=== PATIENT | female | born 1975 | race Caucasian/White ===

== ENCOUNTER → 2017-10-07 | Outpatient (CLI) | payer BC ==
[~2017-10-07] MED LIST: EVE1000C3 PO; IRON1TAB60 PO; MULT-224 PO; OREG1500 PO; VITA1TAB19 PO
[2017-10-07 14:22] LABS: BASOPHILS # (AUTO) 0.02 x10^3/uL (0-0.1); BASOPHILS % (AUTO) 0 % (0-1); EOSINOPHILS # (AUTO) 0.06 x10^3/uL (0-0.4); EOSINOPHILS % (AUTO) 2 % (1-7); LYMPHOCYTES # (AUTO) 1.68 x10^3/uL (1-3.4); LYMPHOCYTES % (AUTO) 38 % (22-44); MD NO; MEAN CORPUSCULAR HEMOGLOBIN 29.9 pg (27.0-34.8); MEAN CORPUSCULAR HGB CONC 33.1 g/dL (32.4-35.8); MEAN CORPUSCULAR VOLUME 90.3 fL (80-100); MEAN PLATELET VOLUME 8.3 fL (7.4-10.4); MONOCYTES # (AUTO) 0.27 x10^3/uL (0.2-0.8); MONOCYTES % (AUTO) 6 % (2-9); NEUTROPHILS # (AUTO) 2.41 x10^3/uL (1.8-6.8); NEUTROPHILS % (AUTO) 54 % (42-75); PLATELET COUNT 282 x10^3/uL (130-400); RED BLOOD COUNT 4.61 x10^6/uL (3.82-5.3); RED CELL DISTRIBUTION WIDTH 13.8 % (9.6-15.2)
== END | disposition home or self-care (01) ==
LOC: STAR 13:20
PROVIDERS: ATTEND Obstetrics & Gynecology Female Pelvic Medicine and Reconstructive Surgery
DX: Z01.818 Encounter for other preprocedural examination (principal); N84.0 Polyp of corpus uteri; N80.1 Endometriosis of ovary
CPT/HCPCS: 36415; 84703; 85025

== ENCOUNTER 2017-10-13 11:03 | Day surgery (SDC) | payer BC ==
[~2017-10-13] VITALS: Ht 165.1 cm; Wt 58.0 kg
[~2017-10-13 11:03] MED LIST changes: +BUPIVACAINE/PF 0.25% ONE
[2017-10-13] MEDS ORDERED: METOCLOPRAMIDE 10MG TABLET PO ONE (11:30)
[2017-10-13] MEDS ORDERED: ACETAMINOPHEN 500 MG TABLET PO ONE (11:30)
[2017-10-13] MEDS ORDERED: FAMOTIDINE 20 MG TABLET PO ONE (11:30)
[2017-10-13] MEDS ORDERED: GABAPENTIN 300 MG CAPSULE PO ONE (11:30)
[2017-10-13] MEDS: LACTATED RINGERS 1,000 ML IV SCH ×2 (12:05→22:39)
[2017-10-13] MEDS ORDERED: MIDAZOLAM 1 MG/ML, 2ML ONE (12:09)
[2017-10-13] MEDS ORDERED: FENTANYL PF 100 MCG/2ML ONE ×2 (12:09→16:42)
[2017-10-13] MEDS ORDERED: PROPOFOL 50 ML ONE (12:19)
[2017-10-13 12:23] LABS: HCG UR SG 1.018 (1.003-1.030)
[2017-10-13] MEDS ORDERED: VASOPRESSIN 20 UNIT/ML, 1ML ONE (13:22)
[2017-10-13] MEDS ORDERED: NEOSTIGMINE 1 MG/ML, 10ML ONE (13:38)
[2017-10-13] MEDS ORDERED: ONDANSETRON 2MG/ML, 2ML ONE (13:38)
[2017-10-13] MEDS ORDERED: CEFAZOLIN 1,000 MG ONE (13:38)
[2017-10-13] MEDS ORDERED: ROCURONIUM 10 MG/ML,10ML ONE (13:38)
[2017-10-13] MEDS ORDERED: KETOROLAC 30 MG/1 ML ONE (13:38)
[2017-10-13] MEDS ORDERED: GLYCOPYRROLATE 0.2MG/1ML, 5ML ONE (13:38)
[2017-10-13] MEDS ORDERED: PROPOFOL 10 MG/ML, 20ML ONE (13:38)
[2017-10-13] MEDS ORDERED: DEXAMETHASONE 4 MG/ML, 1ML ONE (13:38)
[2017-10-13] MEDS ORDERED: INDIGO CARMINE 0.8%, 5ML ONE (14:01)
[2017-10-13] MEDS ORDERED: LACTATED RINGERS 1,000 ML IV SCH (16:20)
[2017-10-13] MEDS ORDERED: ONDANSETRON 2MG/ML, 2ML IVPush PRN (16:30)
[2017-10-13] MEDS ORDERED: PROMETHAZINE 12.5 MG SUPP PR ONE (16:30)
[2017-10-13] MEDS ORDERED: HYDROcodone/APAP 5/325 TABLET PO PRN (16:30)
[2017-10-13] MEDS ORDERED: IBUPROFEN 600 MG TABLET PO PRN (16:30)
[2017-10-13] MEDS ORDERED: OXYcodone 5 MG/5 ML ORAL.SOL UDC ONE (16:43)
[2017-10-13] MEDS ORDERED: PROMETHAZINE 25 MG/ML, 1ML IV PRN (17:00)
[2017-10-13] MEDS ORDERED: FENTANYL PF 100 MCG/2ML IV PRN (17:00)
[2017-10-13] MEDS ORDERED: OXYcodone 5 MG/5 ML ORAL.SOL UDC PO PRN (17:00)
[2017-10-13] MEDS ORDERED: MEPERIDINE/PF 25MG/0.5ML IVPush PRN (17:00)
== END 2017-10-13 22:00 | disposition home or self-care (01) ==
LOC: OUT 11:03 → 4NOR 17:18 → OUT 22:00
PROVIDERS: ATTEND Obstetrics & Gynecology Female Pelvic Medicine and Reconstructive Surgery
DX: D25.0 Submucous leiomyoma of uterus (principal); N80.1 Endometriosis of ovary; N92.0 Excessive and frequent menstruation with regular cycle; N94.6 Dysmenorrhea, unspecified; N83.209 Unspecified ovarian cyst, unspecified side; D64.9 Anemia, unspecified; Z72.89 Other problems related to lifestyle
CPT/HCPCS: 58561; 58662; 81025; 88305; C1760; J0690; J1100; J1885; J2250; J2405; J2704; J2710; J3490; J7120; J3010